=== PATIENT | female | born 1960 | race Two or more races ===

== ENCOUNTER 2017-12-05 14:50 | Emergency (ER) | payer OTHER, MEDICAID ==
[2017-12-05] MEDS: HYDROCODONE/APAP (5/325) TAB PO (15:28)
[2017-12-05] MEDS: DIPHTH/TET/ACEL PERTUSS (ADULT) 0.5 ML VIAL IM* (15:29)
[2017-12-05] MEDS: LIDOCAINE 1% (MDV) 20 ML INJ SC (15:35)
[2017-12-05] MEDS: CEFAZOLIN 1 GM INJ IM (19:01)
[2017-12-05] MEDS: IBUPROFEN 600 MG TAB PO (19:15)
== END 2017-12-05 19:34 | disposition home or self-care (01) ==
LOC: FTE 14:50
DX: S81.011A Laceration without foreign body, right knee, initial encounter (principal); S92.521A Displaced fracture of middle phalanx of right lesser toe(s), initial encounter for closed fracture; W25.XXXA Contact with sharp glass, initial encounter; Y92.9 Unspecified place or not applicable; Z23 Encounter for immunization
CPT/HCPCS: 12002; 73130-RT; 73562; 73590; 73630-50; 90471; 90715; 96372; 99284-25